=== PATIENT | male | born 1990 | race Caucasian/White ===

== ENCOUNTER 2017-07-19 22:49 | Emergency (ER) | payer OTHER ==
[~2017-07-19] VITALS: Ht 157.5 cm; Wt 83.5 kg
[2017-07-19 22:57] VITALS: TEMP 36.6; Ht 157.5 cm; Wt 83.5 kg
[2017-07-19] MEDS ORDERED: HYDROmorphone INJ 2 MG/ML SYR/VIAL IV STA (23:44)
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
[2017-07-20] MEDS ORDERED: OPTIRAY 320 IV PRN
[2017-07-20 00:09] LABS: HEMATOCRIT 41.9 % (42-52); MEAN CELL VOLUME 90.5 fL (80-100); MEAN CORPUSCULAR HGB CONC 36.5 g/dl (32-36); MEAN PLATELET VOLUME 10.7 fL (7.4-10.4); PLATELET COUNT 194 K/uL (130-400); RED BLOOD COUNT 4.63 M/uL (4.7-6.1); WHITE BLOOD COUNT 12.47 K/uL (4.8-10.8)
[2017-07-20 00:28] LABS: BUN/CREATININE RATIO 10.5 (10-20); CREATININE 1.33 mg/dl (0.60-1.40); POTASSIUM 3.1 mmol/L (3.5-5.1)
[2017-07-20] MEDS ORDERED: KETOROLAC TROMETHAMINE 30 MG/ML VIAL IV STA (01:26)
[2017-07-20 02:49] LABS: URINE APPEARANCE CLEAR (CLEAR); URINE BILIRUBIN NEG (NEG); URINE COLOR YELLOW; URINE NITRITE NEG (NEG); URINE SPECIFIC GRAVITY > 1.045 (1.000-1.030); UROBILINOGEN NEG (NEG)
[2017-07-20 02:53] LABS: MANUAL MICROSCOPIC REQUIRED? NO; REVIEW REQ? NO
[2017-07-20] MEDS ORDERED: PERCOCET HOME PACK PO ONE (03:30)
[2017-07-20] MEDS ORDERED: NURSING VERBAL MED ORDER ONE (03:45)
[2017-07-20] MEDS ORDERED: OXYC-57 PO (04:25)
[2017-07-20 04:54] VITALS: BP 118/83; PULSE 110; O2SAT 98
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
== END 2017-07-20 04:57 | disposition home or self-care (01) ==
LOC: EDBD 22:49 → C.EDB 22:51 → C.EDA 07-20 04:57
DX: S42.291A Other displaced fracture of upper end of right humerus, initial encounter for closed fracture (principal); S22.081A Stable burst fracture of T11-T12 vertebra, initial encounter for closed fracture; V49.40XA Driver injured in collision with unspecified motor vehicles in traffic accident, initial encounter; Y93.89 Activity, other specified; Y99.8 Other external cause status

== ENCOUNTER 2017-07-24 13:11 | Inpatient (IN) | payer OTHER ==
[2017-07-23 15:28] VITALS: BMI 33.0
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
[~2017-07-24] VITALS: Ht 157.5 cm; Wt 82.0 kg
[~2017-07-24 13:11] MED LIST: ACETAMINOPHEN 500 MG TAB PO SCH; CEFAZOLIN 2000MG IV PUSH 10 ML IV SCH; LACTATED RINGER'S 1000ML 1,000 ML IV SCH; LACTATED RINGER'S 1000ML IV SCH
[2017-07-24] MEDS ORDERED: oxycodone PO (13:26)
[2017-07-24] MEDS ORDERED: ROPIVACAINE 0.5% 5 MG/ML 30 ML VIAL ONE (13:50)
[2017-07-24 13:52] VITALS: BP 134/74; PULSE 92; TEMP 36.7; O2SAT 99; BMI 33.0
[2017-07-24 14:20] LABS: BUN/CREATININE RATIO 17.7 (10-20); CALCIUM 8.9 mg/dl (8.5-10.1); CREATININE 0.94 mg/dl (0.60-1.40); POTASSIUM 3.7 mmol/L (3.5-5.1)
--- NOTE | 2017-07-24 14:57 | History & Physical Bridge Note ---
H&P Re-Evaluation Bridge Note: I have examined the patient, reviewed the History & Physical and in the interval since the performance of the History & Physical I have noted the following changes of clinical significance: No changes noted
[2017-07-24] MEDS ORDERED: MIDAZOLAM HCL 1 MG/ML 2ML VIAL ONE (18:50)
[2017-07-24] MEDS ORDERED: FENTANYL CITRATE INJ 50 MCG/1 ML 2 ML VIAL ONE (18:50)
[2017-07-24] MEDS ORDERED: BUPIVACAINE/EPINEPHRINE 0.5% MPF 1:200,000 30 ML VIAL ONE (18:57)
[2017-07-24] MEDS ORDERED: BACITRACIN 50000 UNIT VIAL ONE (18:58)
[2017-07-24] MEDS ORDERED: PROPOFOL IV EMULSION 10 MG/ML 20 ML VIAL IV ONE (19:49)
[2017-07-24] MEDS ORDERED: ROCURONIUM BROMIDE 10 MG/ML 5 ML VIAL IV ONE (19:49)
[2017-07-24] MEDS ORDERED: SUCCINYLCHOLINE 100MG/5ML SYR IV ONE (19:49)
[2017-07-24] MEDS ORDERED: LIDOCAINE HCL 2% 2 ML VIAL (20MG/ML) ONE (19:49)
[2017-07-24] MEDS ORDERED: DEXAMETHASONE SOD INJ 4 MG/ML VIAL ONE (19:51)
[2017-07-24] MEDS ORDERED: ONDANSETRON INJ 2 MG/ML 2 ML VIAL ONE (19:51)
[2017-07-24] MEDS ORDERED: BUPIVACAINE/EPINEPHRINE 0.25% 1:200,000 30 ML VIAL ONE (22:15)
--- NOTE | 2017-07-24 22:33 | DIAGNOSTIC IMAGING REPORT ---
INTRAOPERATIVE RIGHT HUMERUS 2 VIEWS CLINICAL HISTORY: Humeral neck fracture COMPARISON STUDY: Chest CT dated 07/20/2017 FINDINGS: 2 intraoperative fluoroscopic spot images are provided for interpretation. 49 seconds of fluoroscopic time was utilized. There is an internally fixated right humeral neck fracture. There is no dislocation. IMPRESSION: Internally fixated right humeral neck fracture. Electronically signed by: Jean-Paul Deshpande M.D. 07/24/2017 10:32 PM Dictated Date/Time: 07/24/2017 10:31 PM
--- NOTE | 2017-07-24 22:36 | [facility] Post Operative Brief Note ---
Immediate Operative Summary Operative Date Jul 24, 2017. Pre-Operative Diagnosis Right Varus impacted proximal humerus fracture Post-Operative Diagnosis Right Varus impacted proximal humerus fracture Procedure(s) Performed Right Proximal Humerus Open Reduction Internal Fixation Surgeon Dr. Holman Captain Cannery Tender Surgeon(s) Bj Cummins Estimated Blood Loss 250 ML Findings as above Specimens None per surgeon Complication(s) None Disposition Recovery Room / PACU
[2017-07-24] MEDS ORDERED: CEFAZOLIN IV 2,000 MG in DEXTROSE 5% 50ML 50 ML IV SCH (22:45)
[2017-07-24] MEDS ORDERED: KETOROLAC TROMETHAMINE 30 MG/ML VIAL IV. PRN (22:45)
[2017-07-24] MEDS ORDERED: ATROPINE SULFATE 0.1 MG/ML 5ML SYR IV PRN (22:45)
[2017-07-24] MEDS ORDERED: MoRPHine SULFATE 2 MG/ML CARP IV PRN (22:45)
[2017-07-24] MEDS ORDERED: ONDANSETRON INJ 2 MG/ML 2 ML VIAL IV PRN ×2 (22:45)
[2017-07-24] MEDS ORDERED: FLUMAZENIL 0.1 MG/1 ML 10 ML VIAL IV PRN (22:45)
[2017-07-24] MEDS ORDERED: OXYCODONE/ACETAMINOPHEN 5-325 TAB PO PRN (22:45)
[2017-07-24] MEDS ORDERED: BISACODYL 10 MG SUPP PR PRN (22:45)
[2017-07-24] MEDS ORDERED: NALOXONE HCL 0.4 MG/1 ML VIAL/CARP IV PRN ×2 (22:45)
[2017-07-24] MEDS ORDERED: PROMETHAZINE HCL INJ 12.5 MG in SODIUM CHLORIDE 0.9% 50ML 50 ML IV PRN (22:45)
[2017-07-24] MEDS ORDERED: SOD PHOSPHATE/SOD BIPHOSPHATE ENEMA 132 ML BTL PR PRN (22:45)
[2017-07-24] MEDS ORDERED: METOCLOPRAMIDE HCL INJ 5 MG/ML 2 ML VIAL IV PRN (22:45)
[2017-07-24] MEDS ORDERED: MAGNESIUM HYDROXIDE SUSP 30 ML UDC PO PRN (22:45)
[2017-07-24] MEDS ORDERED: HYDROmorphone INJ 1 MG/ML SYR IV PRN (22:45)
[2017-07-24] MEDS ORDERED: EpHEDrine SULFATE INJ 50 MG/ML AMP IV PRN (22:45)
--- NOTE | 2017-07-24 22:46 | Discharge Instructions ---
Discharge Instructions Date of Service Jul 24, 2017. Admission Reason for Admission: Closed Fracture Of Upper End Of Humerus Discharge Discharge Diagnosis / Problem: plate and screws Right shoulder Discharge Goals Goal(s): Decrease discomfort, Improve function Activity Recommendations Activity Limitations: as noted below . Instructions / Follow-Up Instructions / Follow-Up may shower 5 days from the day of surgery, let water run over the talita, place a fresh dressing or leave open to air stay in arm sling for 6 weeks may come out of sling to shower and put on a shirt sleep in the sling follow-up with Dr Holman in 2 weeks to remove the talita [phone] Current Hospital Diet Patient's current hospital diet: Regular Diet Discharge Diet Recommended Diet: Regular Diet Procedures Procedures Performed: Right Proximal Humerus Open Reduction Internal Fixation Pending Studies Studies pending at discharge: no Medical Emergencies . Who to Call and When: Medical Emergencies: If at any time you feel your situation is an emergency, please call 911 immediately. . Non-Emergent Contact Non-Emergency issues call your: Surgeon Call Non-Emergent contact if: wound has increased drainage, wound has increased redness . "Provider Documentation" section prepared by Mark Holman. . VTE Core Measure Inpt VTE Proph given/why not?: Treatment not indicated
[2017-07-24] MEDS ORDERED: HYDROmorphone INJ 2 MG/ML SYR/VIAL ONE (22:49)
--- NOTE | 2017-07-24 23:10 | DIAGNOSTIC IMAGING REPORT ---
RIGHT SHOULDER 2 VIEWS CLINICAL HISTORY: Postoperative examination. FINDINGS: 2 portable views of the right shoulder are obtained. No prior studies are available for comparison at the time of dictation. There has been buttress plate fixation of an impacted fracture of the right humeral neck. Numerous cortical lag screws transfix the plate. The orthopedic hardware appears intact. No shoulder dislocation is seen. The acromioclavicular joint is preserved. Overlying soft tissue edema is noted. Skin clips are present. The visualized right lung parenchyma appears clear noting basilar atelectasis. IMPRESSION: Postoperative changes from open reduction and internal fixation of a right humeral neck fracture as above. Electronically signed by: Jovon Darling M.D. 07/24/2017 11:09 PM Dictated Date/Time: 07/24/2017 11:07 PM
--- NOTE | 2017-07-24 23:14 | Anesthesiology Progress Note ---
Anesthesia Post Op Note Date & Time Jul 24, 2017 at 23:14 Vital Signs Pain Intensity: 4.0 Vital Signs Past 12 Hours Date Time Temp Pulse Resp B/P (MAP) Pulse Ox O2 Delivery O2 Flow Rate FiO2 07/24/17 23:05 109 16 103/68 99 Nasal Cannula 3 07/24/17 22:55 105 16 104/74 99 Nasal Cannula 3 07/24/17 22:45 110 16 117/76 100 Nasal Cannula 3 07/24/17 22:37 36.5 115 16 115/52 100 Nasal Cannula 3 07/24/17 13:52 36.7 92 16 134/74 (94) 99 Room Air Notes Mental Status: alert / awake / arousable, participated in evaluation Pt Amnestic to Procedure: Yes Nausea / Vomiting: adequately controlled Pain: adequately controlled Airway Patency, RR, SpO2: stable & adequate BP & HR: stable & adequate Hydration State: stable & adequate Anesthetic Complications: no major complications apparent
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
[2017-07-24 23:59] VITALS: BP 128/83; PULSE 102; TEMP 36.7; Ht 157.5 cm; Wt 82.0 kg
[2017-07-25] VITALS (7 sets, daily range): BP systolic 134–160; BP diastolic 68–83; PULSE 95–107; TEMP 36.5–36.8; O2SAT 97–100
[2017-07-25] MEDS: KETOROLAC TROMETHAMINE 30 MG/ML VIAL IV. SCH ×2 (00:27→05:46)
[2017-07-25] MEDS: POTASSIUM CHLORIDE INJ 10 MEQ in SODIUM CHLORIDE 0.9% 1000ML 1,000 ML IV SCH ×2 (00:28→09:58)
[2017-07-25] MEDS ORDERED: CEFAZOLIN IV 2,000 MG in SYRINGE 0 ML IV SCH (04:00)
[2017-07-25] MEDS ORDERED: DOCUSATE SODIUM 100 MG CAP PO SCH (09:00)
[2017-07-25] MEDS ORDERED: OXYC-57 PO (09:10)
--- NOTE | 2017-07-25 09:26 | PROGRESS NOTE ---
DATE: 07/25/2017 DATE: 07/25/2017 CHIEF COMPLAINT: Status post ORIF of a right proximal humerus fracture, postop day #1. PROGRESS: Erasto was seen and examined at bedside today. Overall, he is doing very well. He has minimal pain in the right shoulder. He had no acute events overnight and has no complaints. PHYSICAL EXAMINATION: RIGHT SHOULDER: The dressing is clean and dry. His radial, median and ulnar nerves were checked and intact at his wrist. His axillary nerve was not checked yet. He is wearing a sling as instructed. X-rays postoperatively of the right shoulder show the shoulder to be in near anatomic alignment and the hardware in good placement. IMPRESSION: Status post open reduction internal fixation of the right proximal humerus postop day #1. PLAN: At this point, he is doing very well, he is not having much pain in the shoulder. He will be in a sling for a total of 6 weeks. He is stable for discharge to home later this morning on oral pain medications.
[2017-07-25] MEDS ORDERED: SENNA 8.6 MG TAB PO SCH (21:00)
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
== END 2017-07-25 10:30 | disposition home or self-care (01) | DRG 493 ==
LOC: C.ACU 13:11 → C.3E 22:43 → ENRESERV 23:16
PROVIDERS: ADMIT Orthopaedic Surgery; ATTEND Orthopaedic Surgery
PROC: 0PSF04Z Reposition Right Humeral Shaft with Internal Fixation Device, Open Approach (ICD-10-PCS; principal; 2017-07-24 07:30)
DX: S42.202A Unspecified fracture of upper end of left humerus, initial encounter for closed fracture (principal); S22.089A Unspecified fracture of T11-T12 vertebra, initial encounter for closed fracture; V89.2XXA Person injured in unspecified motor-vehicle accident, traffic, initial encounter